=== PATIENT | female | born 1940 | race Caucasian/White ===

== ENCOUNTER 2017-02-08 16:29 | Inpatient (IN) | payer MEDICARE, BC ==
--- NOTE | ~2017-02-08 | EGD ---
EGD REPORT [facility] [address] [place]. [address] NAME: BEE KIDD : 36 STATUS : ADM IN PAT#: [id number] AGE: 76 ADM/REG DATE : 02/08/17 MR#: [id number] REPORT SERV DATE: 02/10/17 DICTATED BY: MILA HICKS DATE: 02/10/17 REPORT STATUS : Draft TRANSCRIBED BY: [employer] DATE: 02/10/17 [facility] Patient Name: Bee Kidd Date of : 1940 Attending MD: ZOEY HICKS MD Procedure Date No Time: 02/10/2017 Procedure: Small bowel enteroscopy Indications: Recurrent gastrointestinal bleeding Referring MD: JAZLYN BERRY Medicines: See the Anesthesia note for documentation of the administered medications Complications: No immediate complications. Estimated blood loss: None. Procedure: Pre-Anesthesia Assessment: - ASA Grade Assessment: IV - A patient with severe systemic disease that is a constant threat to life. - Prior to the procedure, a History and Physical was performed, and patient medications and allergies were reviewed. The patient's tolerance of previous anesthesia was also reviewed. The risks and benefits of the procedure and the sedation options and risks were discussed with the patient. All questions were answered, and informed consent was obtained. Prior Anticoagulants: The patient has taken no previous anticoagulant or antiplatelet agents. After reviewing the risks and benefits, the patient was deemed in satisfactory condition to undergo the procedure. After obtaining informed consent, the endoscope was passed under direct vision. Throughout the procedure, the patient's blood pressure, pulse, and oxygen saturations were monitored continuously. The PCF H190L [id number] was introduced through the mouth and advanced to the proximal jejunum. The small bowel enteroscopy was accomplished without difficulty. The patient tolerated the procedure well. Findings: There was no evidence of significant pathology at 80 cm (distal to the pylorus). There was no evidence of significant pathology in the entire examined duodenum. The esophagus was normal. The stomach was normal. Impression: - The examined portion of the jejunum was normal. - Normal examined duodenum. EGD REPORT [address] [address] NAME: BEE KIDD : 38 STATUS : ADM IN PAT#: [id number] AGE: 76 ADM/REG DATE : 02/08/17 MR#: [id number] REPORT SERV DATE: 02/10/17 DICTATED BY: MILA HICKS DATE: 02/10/17 REPORT STATUS : Draft TRANSCRIBED BY: Skeed DATE: 02/10/17 - Normal esophagus. - Normal stomach. Recommendation: - Proceed with colonoscopy Procedure Code(s): --- Professional --- 68948, Small intestinal endoscopy, enteroscopy beyond second portion of duodenum, not including ileum; diagnostic, with or without collection of specimen(s) by brushing or washing (separate procedure) Diagnosis Code(s): --- Professional --- K92.2, Gastrointestinal hemorrhage, unspecified CPT copyright 2013 [employer]. All rights reserved. The codes documented in this report are preliminary and upon meeting coordinator review may be revised to meet current compliance requirements. ZOEY HICKS MD 02/10/2017 9:22 AM This report has been signed electronically. Number of Addenda: 0 Note Initiated On: 02/10/2017 9:08 AM Scope Withdrawal Time 0 hours 0 minutes 0 seconds [id number] [place] [id number]
--- NOTE | ~2017-02-08 | EGD ---
EGD REPORT [facility] [address] [place]. [address] NAME: BEE KIDD : 38 STATUS : ADM IN PAT#: [id number] AGE: 76 ADM/REG DATE : 02/08/17 MR#: [id number] REPORT SERV DATE: 02/10/17 DICTATED BY: MILA HICKS DATE: 02/10/17 REPORT STATUS : Draft TRANSCRIBED BY: [employer] DATE: 02/10/17 [facility] Patient Name: Bee Kidd Date of : 1940 Attending MD: ZOEY HICKS MD Procedure Date No Time: 02/10/2017 Procedure: Colonoscopy Indications: Hematochezia Referring MD: JAZLYN BERRY Medicines: See the Anesthesia note for documentation of the administered medications Complications: No immediate complications. Estimated blood loss: Minimal. Procedure: Pre-Anesthesia Assessment: - ASA Grade Assessment: IV - A patient with severe systemic disease that is a constant threat to life. - Prior to the procedure, a History and Physical was performed, and patient medications and allergies were reviewed. The patient's tolerance of previous anesthesia was also reviewed. The risks and benefits of the procedure and the sedation options and risks were discussed with the patient. All questions were answered, and informed consent was obtained. Prior Anticoagulants: The patient has taken no previous anticoagulant or antiplatelet agents. After reviewing the risks and benefits, the patient was deemed in satisfactory condition to undergo the procedure. After I obtained informed consent, the scope was passed under direct vision. Throughout the procedure, the patient's blood pressure, pulse, and oxygen saturations were monitored continuously. The PCF H190L [id number] was introduced through the anus and advanced to the cecum, identified by appendiceal orifice and ileocecal valve. The ileocecal valve, appendiceal orifice and rectum were photographed. The entire colon was examined. The colonoscopy was performed without difficulty. The patient tolerated the procedure well. The quality of the bowel preparation was adequate. Findings: The perianal and digital rectal examinations were normal. Could not be intubated inspite trying hard. No blood was seen comong out of the ICV Hematin (altered blood/iczhkd-plralg-ewxl material) was found at the hepatic flexure and in the ascending colon. very scant amounts but could EGD REPORT [address] [place]. [address] NAME: BEE KIDD : 36 STATUS : ADM IN [facility]#: [id number] AGE: 76 ADM/REG DATE : 02/08/17 MR#: [id number] REPORT SERV DATE: 02/10/17 DICTATED BY: MILA HICKS DATE: 02/10/17 REPORT STATUS : Draft TRANSCRIBED BY: [facility] DATE: 02/10/17 not identify the source Non-bleeding internal hemorrhoids were found during retroflexion and were Grade I (internal hemorrhoids that do not prolapse). No other significant abnormalities were identified in a careful examination of the remainder of the colon. Impression: - Could not be intubated inspite trying hard. No blood was seen comong out of the ICV - Blood at the hepatic flexure and in the ascending colon. - Non-bleeding internal hemorrhoids. Recommendation: - Patient has a contact number available for emergencies. The signs and symptoms of potential delayed complications were discussed with the patient. Return to normal activities tomorrow. Written discharge instructions were provided to the patient. - Regular diet. - Return patient to [facility] for ongoing care. Procedure Code(s): --- Professional --- 68424, Colonoscopy, flexible, proximal to splenic flexure; diagnostic, with or without collection of specimen(s) by brushing or washing, with or without colon decompression (separate procedure) Diagnosis Code(s): --- Professional --- K64.0, First degree hemorrhoids K92.2, Gastrointestinal hemorrhage, unspecified K92.1, Melena CPT copyright 2013 [employer]. All rights reserved. The codes documented in this report are preliminary and upon buttermilk drier operator review may be revised to meet current compliance requirements. ZOEY HICKS MD 02/10/2017 9:45 AM This report has been signed electronically. Number of Addenda: 0 Note Initiated On: 02/10/2017 9:03 AM Scope Withdrawal Time 0 hours 13 minutes 33 seconds [address] [place] [address]
--- NOTE | ~2017-02-08 | CN ---
Consultation Report [facility] [address] [place]. [address] NAME: ELDER KIDD : 36 STATUS : ADM IN PAT#: [id number] AGE: 76 ADM/REG DATE : 02/08/17 MR#: [id number] REPORT SERV DATE: 02/10/17 DICTATED BY: MILA JONES DATE: 02/09/17 REPORT STATUS : Draft TRANSCRIBED BY: MODL DATE: 02/09/17 DATE OF CONSULTATION: 02/09/2017 REASON FOR CONSULTATION: GI bleed. HISTORY OF PRESENT ILLNESS: Ms. Kidd is a 76-year-old lady, a patient of Dr. Koby Denson, who is very well known to our practice, who has history of Xbnbt-Pmemz-Ddyhr syndrome, who keeps coming in on and off with GI bleed secondary to AVMs. She also has aortic stenosis. She has had multiple endoscopies, both upper and lower, with cauterization of AVM. She comes in again this time with increasing bleeding and a hemoglobin of 4.9. Basically, this is nonpainful. No hematemesis. No nausea, vomiting, or abdominal pain. This admission, she has been transfused 5 units of packed cells, and hemoglobin is up from 4.9 to 8.4. PAST MEDICAL HISTORY: Rest of the medical history is as previously mentioned. PHYSICAL EXAMINATION: ABDOMEN: Soft and nondistended. Benign. LUNGS: Normal. CVS: Normal. IMPRESSION: Recurrent gastrointestinal bleed in a lady with Hynbn-Hbznf-Xfssg syndrome. RECOMMENDATIONS: Discussed with the patient and family. We will proceed with prep and plan for a colonoscopy and an extended EGD with a pediatric colonoscope. JOHNSON/CATHIE Porsche Jones M.D. / [id number] CC: Nadeem Velez M.D. Munford Yates III, M.D.
--- NOTE | ~2017-02-08 | DS ---
Discharge Summary [place] [id number] [facility] [place]. [address] NAME: ELDER MAHMOOD : 36 STATUS : DIS IN PAT#: [id number] AGE: 76 ADM/REG DATE : 02/08/17 MR#: [id number] REPORT SERV DATE: 02/12/17 DICTATED BY: JW BROWN DATE: 02/11/17 REPORT STATUS : Draft TRANSCRIBED BY: CATHIE DATE: 02/11/17 ADMISSION DATE: 02/08/2017 DISCHARGE DATE: 02/11/2017 DISCHARGE DIAGNOSES: 1. 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 2. Chronic kidney disease stage 3. 3. Severe aortic stenosis. 4. Chronic obstructive pulmonary disease without exacerbation. 5. Insulin-dependent diabetes type 2. 6. Obstructive sleep apnea. 7. History of sick sinus syndrome/pacemaker. 8. Hypertension. 9. Hyperlipidemia. 10.Chronic mild thrombocytopenia. DISCHARGE MEDICATIONS: Include: 1. Cymbalta 60 mg p.o. at bedtime. 2. Neurontin mg p.o. at bedtime. 3. Lantus 40 units subcu at bedtime. 4. Toprol-XL 100 mg at bedtime. 5. Prilosec 40 mg p.o. b.i.d. 6. Glucophage 1000 mg p.o. b.i.d. 7. Magnesium oxide 800 mg at bedtime. 8. Centrum one tab p.o. daily. 9. Vitamin B12 at 1000 mcg daily. 10.Flonase two sprays nasally daily p.r.n. 11.Mycostatin cream applied topically b.i.d. p.r.n. 12.Klor-Con 20 mEq Tuesday, Tuesday, and . 13.Vitamin D 50,000 units p.o. weekly. 14.[place] 5/325 one tab p.o. t.i.d. p.r.n. 15.[place] 5/325 one to two tabs p.o. at bedtime as needed. 16.Tylenol with codeine one tab p.o. q.i.d. p.r.n. 17.Midamor 5 mg p.o. daily. 18.Humalog units subcu with meals p.r.n. 19.Prinivil 20 mg at bedtime. 20.Librax one to two tabs p.o. p.r.n. 21.Lasix 40 mg p.o. daily. 22.Qvar 40 mcg spray inhaled b.i.d. p.r.n. DISPOSITION AND FOLLOWUP: The patient medically stable for discharge. Follow up with primary care physician in one week. HISTORY AND PHYSICAL: Per initial assessment. DISCHARGE VITALS: Temperature 98.2, heart rate 66, blood pressure 139/62, respiratory rate Discharge Summary [address] [address] NAME: ELDER MAHMOOD : 38 STATUS : DIS IN PAT#: [id number] AGE: 76 ADM/REG DATE : 02/08/17 MR#: [id number] REPORT SERV DATE: 02/12/17 DICTATED BY: JW BROWN DATE: 02/11/17 REPORT STATUS : Draft TRANSCRIBED BY: CATHIE DATE: 02/11/17 18, O2 saturation 93 on room air. DISCHARGE LABS: WBC of 3.7, hemoglobin 10, hematocrit 29.8, platelets 130. Sodium 144, potassium 3.7, chloride 108, bicarb 29, BUN 11, creatinine 0.79, glucose 68, magnesium 1.7. HOSPITAL COURSE: This is a 76-year-old woman with past medical history of recurrent acute blood loss anemia secondary to AVM from Kojzj-Irlov-Msajl syndrome, comes into the ED complaining of bright red blood per rectum. The patient, on admission, was found to have a hemoglobin of 4.9. The patient was admitted and transfused to keep hemoglobin above 8. GI was consulted. The patient did have endoscopy and colonoscopy, which did not show a source of bleeding, although there was some evidence of blood. The patient was then started on a regular diet. Tolerated well. At day of discharge, the patient's hemoglobin was 10. Bleeding had slowed down. The patient cleared to discharge by GI. Instructed to return to the hospital if bleeding recurs. Instructed to take all medications as described above. Follow up with primary care physician in one week. Further management as an outpatient. Total time for discharge planning, 35 minutes. DICTATED BY: MD LUIZ Orourke/CATHIE Mark Contreras MD / [id number] CC: Nadeem Velez M.D.
--- NOTE | ~2017-02-08 | HP ---
History And Physical [address] [place]. [address] NAME: ELDER MAHMOOD : 38 STATUS : ADM IN [facility]#: [id number] AGE: 76 ADM/REG DATE : 02/08/17 MR#: [id number] REPORT SERV DATE: 02/08/17 DICTATED BY: JW BROWN DATE: 02/08/17 REPORT STATUS : Draft TRANSCRIBED BY: MODAnmlo DATE: 02/08/17 DATE OF ADMISSION: 02/08/2017 CHIEF COMPLAINT: GI bleed. HISTORY OF PRESENT ILLNESS: This is a 76-year-old woman with past medical history of Osler- Patterson-Rendu with past hospitalizations for GI bleed secondary to AVMs from the same, insulin dependent diabetes type 2, chronic kidney disease stage 3, comes in to the ED complaining of hematochezia that has been worsening over the last four days. The patient reports that she recently had a capsule endoscopy that showed as well some AVMs. The patient is followed by Dr. Denson, Gastroenterology. The patient has some associated nausea. Denies any chest pain, shortness of breath, palpitations, diaphoresis, hemoptysis, melena, orthopnea, lower extremity swelling, slurred speech, localized weakness, dizziness, headache, loss of consciousness, fever, chills, cough. The patient was evaluated in the emergency room. She was found to have a potassium level of 5.7 without any EKG changes. The patient's hemoglobin was 4.9. Transfusion was ordered. Hospitalist consulted for further inpatient management. ALLERGIES: 1. PROPOXYPHENE. 2. NSAIDS. 3. STATINS. 4. CODEINE. PAST MEDICAL HISTORY: Significant for: 1. Uvbqr-Ynqll-Nckvp syndrome. 2. Chronic kidney disease, stage 3. 3. Severe aortic stenosis. 4. Insulin-dependent diabetes type 2. 5. Chronic obstructive pulmonary disease. 6. Obstructive sleep apnea. 7. History of arrhythmia with sick sinus syndrome and pacemaker placement. 8. Fibromyalgia. 9. Osteoarthritis. 10.Osteoporosis. 11.Degenerative disc disease. 12.Hypertension. 13.Hyperlipidemia. 14.GERD. 15.Neuropathy/polyneuropathy. 16.Migraine headaches. 17.Paroxysmal atrial fibrillation. PAST SURGICAL HISTORY: 1. Hysterectomy. 2. Appendectomy. History And Physical [address] [place]. [address] NAME: ELDER MAHMOOD : 38 STATUS : ADM IN [facility]#: [id number] AGE: 76 ADM/REG DATE : 02/08/17 MR#: [id number] REPORT SERV DATE: 02/08/17 DICTATED BY: JW BROWN DATE: 02/08/17 REPORT STATUS : Draft TRANSCRIBED BY: CATHIE DATE: 02/08/17 3. Bilateral thyroidectomy. 4. Numerous endoscopies, upper endoscopy and colonoscopy with AVM, angiodysplasia, cauterizations, and treatment. 5. Cholecystectomy. 6. Pacemaker placement. 7. Carpal tunnel surgical release. 8. Tonsillectomy. 9. Adenoidectomy. 10.C-sections. SOCIAL HISTORY: Denies any alcohol, tobacco, or illicit drug use. FAMILY HISTORY: Positive for diabetes, hypertension, coronary artery disease, and Osler- Patterson-Rendu syndrome. HOME MEDICATIONS: Include: 1. Amiloride 5 mg p.o. daily. 2. Qvar 40 mcg inhaled daily p.r.n. 3. Librax one to two tabs p.o. daily p.r.n. 4. Vitamin B12 1000 mcg p.o. daily. 5. Cymbalta 60 mg at bedtime. 6. Vitamin D 50,000 unit capsule p.o. weekly. 7. Flonase two sprays daily p.r.n. 8. Lasix 40 mg p.o. daily. 9. Neurontin 100 mg p.o. at bedtime. 10.[place] 5/325, one tab p.o. t.i.d. p.r.n. 11.Insulin glargine 40 units subcutaneously at bedtime. 12.Insulin lispro 1 to 5 units subcutaneously with meals p.r.n. 13.Prinivil 20 mg at bedtime. 14.Mag-Ox 800 mg p.o. at bedtime. 15.Metformin 1000 mg p.o. breakfast. 16.Toprol-XL 100 mg p.o. at bedtime. 17.Centrum p.o. daily. 18.Mycostatin cream applied topically b.i.d. p.r.n. 19.Prilosec 40 mg p.o. b.i.d. 20.Klor-Con 20 mEq p.o. Sundays, Tuesdays, . 21.Tylenol q.i.d. p.r.n. REVIEW OF SYSTEMS: 12-point system reviewed, otherwise negative per HPI. PHYSICAL EXAMINATION: VITAL SIGNS: Temperature 98.5, heart rate 70, blood pressure 112/52, respiratory rate 15, O2 saturation 98% on room air. GENERAL: No acute distress. HEENT: EOMI, PERRLA, nonicteric sclerae, nonerythematous pharynx. NECK: Supple. No JVD. No lymphadenopathy. History And Physical [address] [address] NAME: ELDER MAHMOOD : 36 STATUS : ADM IN [facility]#: [id number] AGE: 76 ADM/REG DATE : 02/08/17 MR#: [id number] REPORT SERV DATE: 02/08/17 DICTATED BY: JW BROWN DATE: 02/08/17 REPORT STATUS : Draft TRANSCRIBED BY: CATHIE DATE: 02/08/17 RESPIRATORY: Clear to auscultation bilaterally. No wheezes, rhonchi, or crackles. CARDIOVASCULAR: Regular rate and rhythm. No murmurs, rubs, or gallops. ABDOMEN: Bowel sounds positive. Soft, nontender, nondistended. No rebound or guarding. EXTREMITIES: No edema or cyanosis. NEUROLOGICAL: Nonfocal. LABORATORY DATA: WBC of 4, hemoglobin 4.9, hematocrit 15.6, platelets 123. Sodium 144, potassium 5.7, chloride 112, bicarb 25, BUN 31, creatinine 1.05, glucose 133. ASSESSMENT: 1. 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 2. Hyperkalemia without EKG changes. 3. Chronic kidney disease, stage 3. 4. Severe aortic stenosis. 5. Chronic obstructive pulmonary disease without exacerbation. 6. Insulin-dependent diabetes type 2. 7. Obstructive sleep apnea. 8. History of sick sinus syndrome/pacemaker. 9. Hypertension. 10.Hyperlipidemia. 11.Thrombocytopenia, mild/chronic. PLAN: The patient will be admitted to cardiac telemetry bed. Transfuse three units total packed red blood cells. Consult Dr. Denson emergently for the possible interventions. Place n.p.o. H and H q.6 hours, transfuse to keep hemoglobin above 8. Restart appropriate home medications. DVT prophylaxis SCDs. GI prophylaxis PPI. Further evaluation and management per clinical course. CODE STATUS: Full code. Total time for history and physical 40 minutes. RLV/MODL Mark Contreras MD / [id number] CC: Nadeem Velez M.D.
[2017-02-08 13:53] LABS: BASOPHILS 0.2 %; BASOPHILS ABSOLUTE 0.01 10/3/uL (0.0-0.16); EOSINOPHILS 2.2 %; EOSINOPHILS ABSOLUTE 0.09 10/3/uL (0.0-0.53); ER CBC TAT 0 Hrs 05 Mins; HEMATOCRIT 15.6 % (36.0-48.0); HEMOGLOBIN 4.9 g/dL (12.0-16.0); IMMATURE GRANULOCYTES 0.2 %; IMMATURE GRANULOCYTES ABSOLUTE 0.01 10/3/uL (0.0-0.11); LYMPHOCYTES 18.9 %; LYMPHOCYTES ABSOLUTE 0.76 10/3/uL (0.67-4.30); MEAN CORPUS HGB CONC 31.4 g/dL (32.0-36.0); MEAN CORPUSCULAR HEMOGLOB 28.3 pg (26.0-34.0); MEAN CORPUSCULAR VOLUME 90.2 fL (80-100); MEAN PLATELET VOLUME 9.7 fL (9.2-13.0); MONOCYTES 7.7 %; MONOCYTES ABSOLUTE 0.31 10/3/uL (0.21-1.20); NEUTROPHILS 70.8 %; NEUTROPHILS ABSOLUTE 2.85 10/3/uL (2.02-8.40); PLATELET COUNT 123 10/3/uL (150-400); RBC DISTRIBUTION WIDTH 16.7 % (12.0-16.0); RED CELL COUNT 1.73 10/6/uL (4.0-5.6)
[2017-02-08 13:57] LABS: MANUAL DIFF NO %
[2017-02-08 14:01] LABS: INTERNATIONAL NORMAL RATI 1.1 UNITS (-); PARTIAL THROMBO TIME 24.8 SEC (22.5-37.2); PROTIME (NOT ORD) 13.8 SEC (12.0-14.5)
[2017-02-08 14:09] LABS: A/G RATIO 1.3 (0.7-1.9); ALBUMIN 2.9 G/DL (3.5-5.0); CALCIUM, SERUM 9.2 MG/DL (8.5-10.4); CHLORIDE, SERUM 112 MMOL/L (96-112); CO2 (CARBON DIOXIDE) 25 MMOL/L (24-34); CREATININE 1.04 MG/DL (0.55-1.02); GFR AFRICAN AMERICAN 60 ML/MIN (>=60); GFR NON AFRICAN AMERICAN 51 ML/MIN (>=60); GLOBULIN 2.3 G/DL (2.5-4.1); GLUCOSE, SERUM 133 MG/DL (60-99); SGOT(AST) 20 U/L (5-40); SGPT(ALT) 15 U/L (5-65); SODIUM, SERUM 144 MMOL/L (135-148); TOTAL PROTEIN 5.2 G/DL (6.0-8.5)
[2017-02-08 14:11] LABS: ALKALINE PHOSPHATASE 100 U/L (45-117); BUN (BLOOD UREA NITROGEN) 31 MG/DL (6-23); POTASSIUM, SERUM 5.7 MMOL/L (3.5-5.3); TOTAL BILIRUBIN 0.7 MG/DL (0-1.2)
[~2017-02-08 16:29] MED LIST: AMILORID5B PO; ASA/BUT/CAFF PO; ASTELIN NAS; AT25 PO; B-125000 MCG SL; BUTABARBITAL PO; CAFFEINE PO; CALCIUM CITRATE +D PO; CALTRA600D PO; CENTRUM PO; CENTRUM TAB1 TAB PO; COENZYME Q10; COREGCR20 PO; CYANO1000T PO; CYMBALTA60 PO; DILT-XR240 MG PO; DOVONCR60 TOP; DOVONEX; DOVONEX TOP; FIORICET OR; FISH-EPA1000 MG PO; FLONASE NAS; GLUCOPHAGE1000 MG PO; GLUCPH PO; HUMALOG SC; HUMALOGPEN; HUMALOGPEN SC; HUMULIN R1 ML SC; Humalog Inj SC; K-99 PO; KLOR-CON 1010 MEQ PO; KLOR-CON M2020 MEQ PO; L-LYSINE500 M1 OR; L40 PO; LANTUS SC; LANTUSCART SC; LIBRAX PO; LIDODERM T; LISINOPRIL PO; LIVALO PO; LIVALO2 MG PO; LIVALO4 MG PO; Lisinopril; MAG OXIDE; MAG OXIDE250 MG PO; MAGOX4 PO; METOPROLOL; MULTIPLE VIT PO; MYCOSCROI TOP; NEUR400 PO; NEUR600 PO; NEUR800 PO; NORCO1 TA1 PO; NORV25 PO; NYSTATIN TOP; NYSTATIN-TRIAMC15 GM T; OMNARIS; OMNARIS NAS; OS500 PO; PR25 PO; PRILO PO; PRILOSEC40 MG PO; PRIN10 PO; PRIN20 PO; PROAIR HFA INH; PROMEGA PO; PROVHFA INH; QVAR40 MC1 INH; QVAR80 MCG IN; SINGULAIR1 PO; SKELAXIN8 PO; SURBEX/ZINC1 TAB PO; SUSTENEX PO; T PO; TANDEM OR; TOPXL100 PO; TOPXL50 PO; TYLENOL PO; VICODINTAB PO; VITAMIN B COMPLEX PO; VITAMIN B-121000 MC1 PO; VITAMIN B-121000 MC1 SL; VITAMIN C1000 MG PO; VITD PO; ZANTAC150 MG PO; ZESTRIL20 MG PO; ZOCOR10 PO; ZOCOR40 PO; ZYRTEC ALLGY10 MG PO; [UNRECOGNIZED DRUG - OTHER]; [UNRECOGNIZED DRUG - OTHER]; [UNRECOGNIZED DRUG - OTHER] PO; [UNRECOGNIZED DRUG - OTHER] TOP
[2017-02-08 20:04] LABS: HEMATOCRIT 20.9 % (36.0-48.0); HEMOGLOBIN 6.9 g/dL (12.0-16.0)
[2017-02-08 20:15] LABS: CALCIUM, SERUM 9.8 MG/DL (8.5-10.4); CHLORIDE, SERUM 112 MMOL/L (96-112); CO2 (CARBON DIOXIDE) 21 MMOL/L (24-34); CREATININE 1.04 MG/DL (0.55-1.02); GFR AFRICAN AMERICAN 60 ML/MIN (>=60); GFR NON AFRICAN AMERICAN 51 ML/MIN (>=60); GLUCOSE, SERUM 140 MG/DL (60-99); POTASSIUM, SERUM 4.6 MMOL/L (3.5-5.3); SODIUM, SERUM 142 MMOL/L (135-148)
[2017-02-08 20:16] LABS: BUN (BLOOD UREA NITROGEN) 26 MG/DL (6-23)
[2017-02-09 04:27] LABS: HEMATOCRIT 25.9 % (36.0-48.0); HEMOGLOBIN 8.4 g/dL (12.0-16.0)
[2017-02-09 04:36] LABS: CALCIUM, SERUM 9.4 MG/DL (8.5-10.4); CHLORIDE, SERUM 113 MMOL/L (96-112); CREATININE 0.97 MG/DL (0.55-1.02); GFR AFRICAN AMERICAN 65 ML/MIN (>=60); GFR NON AFRICAN AMERICAN 56 ML/MIN (>=60); POTASSIUM, SERUM 3.8 MMOL/L (3.5-5.3); SODIUM, SERUM 148 MMOL/L (135-148)
[2017-02-09 04:42] LABS: BUN (BLOOD UREA NITROGEN) 21 MG/DL (6-23); CO2 (CARBON DIOXIDE) 27 MMOL/L (24-34); GLUCOSE, SERUM 102 MG/DL (60-99)
[2017-02-09 09:11] LABS: HEMATOCRIT 23.5 % (36.0-48.0); HEMOGLOBIN 7.9 g/dL (12.0-16.0)
[2017-02-09 09:13] LABS: PROTIME (NOT ORD) 13.4 SEC (12.0-14.5)
[2017-02-09 09:41] LABS: MEAN CORPUSCULAR HEMOGLOB 29.7 pg (26.0-34.0); MEAN CORPUSCULAR VOLUME 87.8 fL (80-100); MEAN PLATELET VOLUME 10.5 fL (9.2-13.0); PLATELET COUNT 125 10/3/uL (150-400); RBC DISTRIBUTION WIDTH 15.9 % (12.0-16.0); WHITE BLOOD CELLS 3.7 10/3/uL (4.5-10.5)
[2017-02-09 09:42] LABS: MANUAL DIFF YES %; MEAN CORPUS HGB CONC 33.8 g/dL (32.0-36.0); RED CELL COUNT 2.63 10/6/uL (4.0-5.6)
[2017-02-09 10:16] LABS: EOSINOPHILS 1 %; EOSINOPHILS ABSOLUTE (CALC) 0.04 10/3/uL (0.0-0.53); LYMPHOCYTES 12 %; LYMPHOCYTES ABSOLUTE (CALC) 0.44 10/3/uL (0.67-4.30); MONOCYTES 4 %; MONOCYTES ABSOLUTE (CALC) 0.15 10/3/uL (0.21-1.20); NEUTROPHILS ABSOLUTE (CALC) 3.07 10/3/uL (2.02-8.40); PLATELET ESTIMATE SLT DEC (ADEQUATE); RBC MORPHOLOGY NORM (NORMAL); SEGMENTED NEUTROPHIL (0) 83 %; TOTAL NUCLEATED CELLS 100
[2017-02-09 18:23] LABS: BUN (BLOOD UREA NITROGEN) 19 MG/DL (6-23); CHLORIDE, SERUM 111 MMOL/L (96-112); CO2 (CARBON DIOXIDE) 27 MMOL/L (24-34); CREATININE 0.83 MG/DL (0.55-1.02); GFR AFRICAN AMERICAN 78 ML/MIN (>=60); GFR NON AFRICAN AMERICAN 68 ML/MIN (>=60); GLUCOSE, SERUM 82 MG/DL (60-99); POTASSIUM, SERUM 3.8 MMOL/L (3.5-5.3); SODIUM, SERUM 146 MMOL/L (135-148)
[2017-02-10 06:28] LABS: BASOPHILS 0.3 %; BASOPHILS ABSOLUTE 0.01 10/3/uL (0.0-0.16); EOSINOPHILS 4.6 %; EOSINOPHILS ABSOLUTE 0.16 10/3/uL (0.0-0.53); HEMOGLOBIN 8.1 g/dL (12.0-16.0); IMMATURE GRANULOCYTES 0.6 %; IMMATURE GRANULOCYTES ABSOLUTE 0.02 10/3/uL (0.0-0.11); LYMPHOCYTES 17.8 %; LYMPHOCYTES ABSOLUTE 0.62 10/3/uL (0.67-4.30); MEAN CORPUS HGB CONC 33.8 g/dL (32.0-36.0); MEAN CORPUSCULAR HEMOGLOB 29.5 pg (26.0-34.0); MEAN CORPUSCULAR VOLUME 87.3 fL (80-100); MEAN PLATELET VOLUME 10.6 fL (9.2-13.0); MONOCYTES 10.3 %; MONOCYTES ABSOLUTE 0.36 10/3/uL (0.21-1.20); NEUTROPHILS 66.4 %; NEUTROPHILS ABSOLUTE 2.32 10/3/uL (2.02-8.40); PLATELET COUNT 129 10/3/uL (150-400); RBC DISTRIBUTION WIDTH 16.2 % (12.0-16.0); RED CELL COUNT 2.75 10/6/uL (4.0-5.6); WHITE BLOOD CELLS 3.5 10/3/uL (4.5-10.5)
[2017-02-10 06:31] LABS: MANUAL DIFF NO %
[2017-02-10 06:42] LABS: BUN (BLOOD UREA NITROGEN) 11 MG/DL (6-23); CALCIUM, SERUM 9.1 MG/DL (8.5-10.4); CHLORIDE, SERUM 108 MMOL/L (96-112); CO2 (CARBON DIOXIDE) 29 MMOL/L (24-34); CREATININE 0.79 MG/DL (0.55-1.02); GFR AFRICAN AMERICAN 83 ML/MIN (>=60); GFR NON AFRICAN AMERICAN 72 ML/MIN (>=60); GLUCOSE, SERUM 68 MG/DL (60-99); POTASSIUM, SERUM 3.7 MMOL/L (3.5-5.3); SODIUM, SERUM 144 MMOL/L (135-148)
[2017-02-10 20:22] LABS: POTASSIUM, SERUM 4.2 MMOL/L (3.5-5.3)
[2017-02-11 05:28] LABS: BASOPHILS 0.3 %; BASOPHILS ABSOLUTE 0.01 10/3/uL (0.0-0.16); EOSINOPHILS ABSOLUTE 0.22 10/3/uL (0.0-0.53); IMMATURE GRANULOCYTES 0.3 %; IMMATURE GRANULOCYTES ABSOLUTE 0.01 10/3/uL (0.0-0.11); LYMPHOCYTES 20.5 %; LYMPHOCYTES ABSOLUTE 0.75 10/3/uL (0.67-4.30); MEAN CORPUS HGB CONC 33.6 g/dL (32.0-36.0); MEAN CORPUSCULAR HEMOGLOB 28.9 pg (26.0-34.0); MEAN CORPUSCULAR VOLUME 86.1 fL (80-100); MEAN PLATELET VOLUME 10.2 fL (9.2-13.0); MONOCYTES 9.6 %; MONOCYTES ABSOLUTE 0.35 10/3/uL (0.21-1.20); NEUTROPHILS 63.3 %; NEUTROPHILS ABSOLUTE 2.31 10/3/uL (2.02-8.40); PLATELET COUNT 130 10/3/uL (150-400); RBC DISTRIBUTION WIDTH 16.1 % (12.0-16.0); WHITE BLOOD CELLS 3.7 10/3/uL (4.5-10.5)
[2017-02-11 05:29] LABS: HEMATOCRIT 29.8 % (36.0-48.0); RED CELL COUNT 3.46 10/6/uL (4.0-5.6)
[2017-02-11 05:30] LABS: MANUAL DIFF NO %
[2017-03-15] MEDS ORDERED: PROAIR HFA INH (14:36)
[2017-03-15] MEDS ORDERED: LIDODERM TOP (14:36)
[2017-05-15] MEDS ORDERED: LANTUSCART SC (17:32)
[2017-05-15] MEDS ORDERED: LIVALO4 MG PO (17:32)
[2017-05-15] MEDS ORDERED: HUMALOGPEN SC (17:33)
[2017-05-15] MEDS ORDERED: NEUR800 PO (17:33)
[2017-05-15] MEDS ORDERED: GLUCOPHAGE1000 MG PO (17:33)
[2017-05-15] MEDS ORDERED: VITD PO (17:34)
[2017-05-15] MEDS ORDERED: PRILOSEC40 MG PO (17:34)
[2017-05-15] MEDS ORDERED: NORCO1 TA1 PO (17:35)
[2017-05-15] MEDS ORDERED: CYMBALTA60 PO (17:36)
[2017-05-15] MEDS ORDERED: TOPXL100 PO (17:36)
[2017-05-15] MEDS ORDERED: PRIN20 PO (17:36)
[2017-05-15] MEDS ORDERED: ACET500CAP PO (17:36)
[2017-05-15] MEDS ORDERED: AMILORID5B PO (17:37)
[2017-05-15] MEDS ORDERED: L40 PO (17:37)
[2017-05-15] MEDS ORDERED: LIDODERM TOP (17:37)
[2017-05-15] MEDS ORDERED: NYSTATIN-TRIAMC15 GM TOP (17:38)
[2017-05-15] MEDS ORDERED: AT10 PO (17:39)
[2017-05-15] MEDS ORDERED: LIBRAX PO (17:40)
[2017-05-15] MEDS ORDERED: PROAIR HFA INH (17:40)
[2017-05-15] MEDS ORDERED: KLOR-CON M2020 MEQ PO (17:40)
[2017-05-15] MEDS ORDERED: B121000P IM (17:41)
[2017-05-15] MEDS ORDERED: QVAR40 MC1 INH (17:41)
[2017-05-15] MEDS ORDERED: MULTIVIT/MIN PO (17:41)
[2017-05-15] MEDS ORDERED: PSEUDOEPHEDR60 MG PO (17:42)
[2017-05-15] MEDS ORDERED: ZYRTEC ALLGY10 MG PO (17:42)
[2017-05-15] MEDS ORDERED: FLONASE NAS (17:43)
[2017-05-15] MEDS ORDERED: DOVONEX TOP (17:44)
== END 2017-02-11 16:49 | disposition home or self-care (01) | DRG 300 ==
LOC: ER 16:29 → 1SO 17:24
PROVIDERS: Emergency Medicine; Internal Medicine; Internal Medicine Gastroenterology; Nurse Practitioner Family
PROC: 30233N1 Transfusion of Nonautologous Red Blood Cells into Peripheral Vein, Percutaneous Approach (ICD-10-PCS; principal; 2017-02-08)
PROC: 0DJD8ZZ Inspection of Lower Intestinal Tract, Via Natural or Artificial Opening Endoscopic (ICD-10-PCS; 2017-02-10)
PROC: 0DJ08ZZ Inspection of Upper Intestinal Tract, Via Natural or Artificial Opening Endoscopic (ICD-10-PCS; 2017-02-10 13:00)
DX: I78.0 Hereditary hemorrhagic telangiectasia (principal); D62 Acute posthemorrhagic anemia; E11.22 Type 2 diabetes mellitus with diabetic chronic kidney disease; D69.6 Thrombocytopenia, unspecified; E87.5 Hyperkalemia; N18.3 Chronic kidney disease, stage 3 (moderate); I12.9 Hypertensive chronic kidney disease with stage 1 through stage 4 chronic kidney disease, or unspecified chronic kidney disease; E78.5 Hyperlipidemia, unspecified; K64.0 First degree hemorrhoids; J44.9 Chronic obstructive pulmonary disease, unspecified; I35.0 Nonrheumatic aortic (valve) stenosis; G62.9 Polyneuropathy, unspecified; G47.33 Obstructive sleep apnea (adult) (pediatric); M79.7 Fibromyalgia; Z79.4 Long term (current) use of insulin; Z79.84 Long term (current) use of oral hypoglycemic drugs; Z79.899 Other long term (current) drug therapy; Z95.0 Presence of cardiac pacemaker; Z88.5 Allergy status to narcotic agent; Z88.8 Allergy status to other drugs, medicaments and biological substances
CPT/HCPCS: 36415; 80048; 80053; 82962; 83036; 83735; 84132; 85014; 85018; 85025; 85610; 85730; 86850; 86900; 86901; 86920; 93005; 96374; 96375; 99285; A9270-GY; C9113; J1940; J2370; P9016